=== PATIENT | female | born 1985 | race African-American/Black ===

== ENCOUNTER 2020-03-24 10:52 | Emergency (ER) | payer SELFPAY ==
[2020-03-24] MEDS ORDERED: predniSONE 20 MG TAB ONE (11:38)
== END 2020-03-24 11:43 | disposition home or self-care (01) ==
LOC: MADERS 10:52
DX: S00.86XA Insect bite (nonvenomous) of other part of head, initial encounter (principal); S40.862A Insect bite (nonvenomous) of left upper arm, initial encounter; S40.861A Insect bite (nonvenomous) of right upper arm, initial encounter; F17.210 Nicotine dependence, cigarettes, uncomplicated; W57.XXXA Bitten or stung by nonvenomous insect and other nonvenomous arthropods, initial encounter
CPT/HCPCS: 99281; J7512